=== PATIENT | female | born 1965 | race African-American/Black ===

== ENCOUNTER 2017-05-26 09:00 | Emergency (ER) | payer MEDICAID ==
[~2017-05-26] VITALS: Ht 170.2 cm; Wt 91.0 kg
[2017-05-26] MEDS ORDERED: KETOROLAC 60MG/2ML VIAL IM ONE (11:15)
[2017-05-26 11:33] LABS: CLARITY URINE CLEAR (CLEAR); COLOR URINE YELLOW (YELLOW); KETONES URINE NEGATIVE (NEGATIVE); LEUKOCYTE ESTERASE URINE NEGATIVE (NEGATIVE); NITRITE URINE NEGATIVE (NEGATIVE); OCCULT BLOOD URINE NEGATIVE (NEGATIVE); PROTEIN URINE NEGATIVE (NEGATIVE); SPECIFIC GRAVITY URINE 1.021 (1.005-1.030); UROBILINOGEN URINE 0.2 E.U./dL (0.2-1.0)
[2017-05-26 12:05] VITALS: BP 145/89
== END 2017-05-26 12:06 | disposition home or self-care (01) ==
LOC: ER 09:51
DX: G89.29 Other chronic pain (principal); M54.5 Low back pain; Z88.6 Allergy status to analgesic agent
CPT/HCPCS: 81003; 96372; 99283; J1885